=== PATIENT | male | born 1960 | race Caucasian/White ===

== ENCOUNTER 2020-12-26 11:51 | Emergency (ER) | payer BC, OTHER ==
[~2020-12-26] VITALS: Ht 175.2 cm; Wt 69.3 kg
[2020-12-26] MEDS ORDERED: PHENYLEPHRINE 0.25% NASAL SPR (NEO-SYNEPHRINE) 15 ML NS ONE (12:01)
[2020-12-26] MEDS ORDERED: PHENYLEPHRINE 0.25% NASAL SPR (NEO-SYNEPHRINE) 15 ML NS PRN (12:15)
--- NOTE | 2020-12-26 13:02 | ED EENT ---
History of Present Illness General Chief Complaint: Nasal Problems Stated Complaint: EPISTAXIS Nursing Triage Note: Patient presents to the ED with c/o epistaxis. Patient states he has had a nose bleed intermittently since Friday. He reports he got the bleeding to stop around 3am and then around 7am it began to bleed again. He was seen at the Urgent care and packing was inserted into his left nare. He states that the bleeding stopped again and then started about 20 minutes prior to arrival. History of Present Illness Date Seen by Provider: Dec 26, 2020 Time Seen by Provider: 11:55 Initial Comments 60-year-old male presents with nosebleed the past 2 days intermittently. When seen in urgent care and had packing inserted on the left side which he said worked for about 20 minutes. Denies history of nosebleeds. No significant past medical history, but he does take a baby aspirin daily and has for several years. He isn't sure why He takes it but was instructed to do so by a medical provider. Allergies and Home Medications Allergies Coded Allergies: No Known Drug Allergies (Unverified , 12/26/20) Patient Home Medication List Home Medication List Reviewed: Yes Review of Systems Review of Systems Constitutional: No dizziness, No fever, No malaise, No weakness Eyes: No Symptoms Reported Ears: No Symptoms Reported Nose: see HPI, clots, epistaxis; denies pain, denies clear discharge, denies purulent discharge, denies serosanguinous discharge, denies previous injury Mouth: no symptoms reported Throat: no symptoms reported Respiratory: No cough Cardiovascular: No chest pain, No edema, No palpitations, No syncope Gastrointestinal: No abdominal pain, No nausea, No vomiting Skin: No change in color, No rash Past [id number] Hx Patient Social History Tobacco Use?: No Use of E-Cig and/or Vaping dev: No Substance use?: No Alcohol Use?: Yes Alcohol type: Beer Alcohol Frequency: Daily Pt feels they are or have been: No Physical Exam Vital Signs Vital Signs - First Documented 12/26/20 12:09 Temp 35.7 Pulse 121 Resp 15 B/P (MAP) 172/93 (119) Pulse Ox 98 O2 Delivery Room Air Height, Weight, BMI Height: '" Weight: lbs. oz. kg; 22.00 BMI Method: General Appearance: WD/WN, no apparent distress Nose: active bleeding, dried blood, other (large clots) Mouth/Throat: normal mouth inspection Neck: non-tender, full range of motion, supple Cardiovascular: regular rate, rhythm, no edema, no JVD Neurologic/Psychiatric: no motor/sensory deficits, alert, normal mood/affect, oriented x 3 Skin: normal color, warm/dry Progress/Results/Core Measures Results/Orders My Orders Orders - KIANA CANNON DO Phenylephrine 0.25% Nasal Spra (Mauro-Syne (12/26/20 12:01) Phenylephrine 0.25% Nasal Spra (Mauro-Syne (12/26/20 12:15) Medications Given in ED Current Medications Medications Dose Ordered Sig/Fatih Route Start Time Stop Time Status Last Admin Dose Admin Phenylephrine HCl 15 ml Q4H PRN NS 12/26/20 12:15 12/26/20 12:10 15 ML Vital Signs/I&O 12/26/20 12:09 Temp 35.7 Pulse 121 Resp 15 B/P (MAP) 172/93 (119) Pulse Ox 98 O2 Delivery Room Air Blood Pressure Mean: 119 Progress Progress Note : Progress Note shortly after arrival., removed packing placed by clinic, sprayed NEosynep hrine and placed nasal clamp. No post bleeding visualized. RE-eval after 20 minutes and pt not having any active bleeding with clamp on, removed, looked w nasal spec and no active bleeding. Noted large clot Left nares....sprayed again and re-clamped. Patient later had episode of choking on a large clot at pharynx, spit up dark blood. Removed clamp, allowed to blow nose and removed large clot from Left nares. No active bleeding...sprayed w NeoSyn again and re-clamped. Pt feeling better. No observed post bleeding. Departure Impression Primary Impression: Epistaxis Disposition: 01 HOME, SELF-CARE Condition: Improved Departure-Patient Inst. Referrals: NO,LOCAL PHYSICIAN (PCP/Family) Primary Care Physician Patient Instructions: Nosebleeds (DC) Add. Discharge Instructions: Stop taking your daily aspirin until instructed otherwise to take it by your physician. Do not blow your nose, but only gently remove any clots or mucous w a tissue. You may spray NeoSynephrine for any nose bleeding over the next few days and clamp your nose again for [address] Ruiz in 2 days if nosebleeds have not resolved. You should apply vaseline (petroleum jelly) gently w a cotton tip swab twice daily to both nostrils (the inner wall). Avoid drying out your nose with fans blowing on you or too much air conditioning which dries out the air. You can spray nasal saline solution to your nose several times a day to increase humidity and also help with healing All discharge instructions reviewed with patient and/or family. Voiced understanding. KIANA CANNON DO Dec 26, 2020 13:02
[2020-12-26 13:24] VITALS: BP 172/93
== END 2020-12-26 13:20 | disposition home or self-care (01) ==
LOC: ER FS 11:53
DX: R04.0 Epistaxis (principal)